=== PATIENT | female | born 1995 | race Caucasian/White ===

== ENCOUNTER 2021-04-29 22:19 | Emergency (ER) | payer SELFPAY ==
[2021-04-29 22:21] VITALS: BP 144/89; PULSE 113; RESP 16; TEMP 36.4; O2SAT 96; BMI 19.9
[2021-04-29 23:48] LABS: Amphetamine Urine VISTA NEGATIVE (<1000 ng/mL); Barbiturate Urine VISTA NEGATIVE (< 200 ng/mL); Benzodiazepine Urine VISTA NEGATIVE (< 200 ng/mL); Cocaine Urine VISTA NEGATIVE (< 300 ng/mL); Ecstacy Urine VISTA NEGATIVE (< 500 ng/mL); Methadone Urine VISTA NEGATIVE (< 300 ng/mL); PCP Urine VISTA NEGATIVE (< 25 ng/mL); THC Urine VISTA POSITIVE (< 50 ng/mL); Vista UDS pH Range 5
[2021-04-29 23:53] LABS: Absolute Lymphocyte Count 2.17 X10^3/uL (0.83-4.51); Absolute Neutrophil Count 7.3 X10^3/uL (2.0-7.7); Basophil% 0.9 % (0-1); Eosinophils% 2.8 % (0-5); Hematocrit 37.3 % (37-47); Hemoglobin 12.5 g/dL (12.0-15.0); Lymphocyte # 2.17 X10^3/ul (0.83-4.51); Mean Corp Hgb Conc 33.5 g/dL (32-36); Mean Corpuscular Hgb 29.8 pg (27.0-32.0); Mean Platelet Vol. 9.5 fl (6.2-12.0); Monocyte% 9.2 % (0-10); NRBC Flagged by Analyzer 0 % (0-5); Neutrophil # 7.26 X10^3/uL (2.7-7.7); Neutrophil % 66.7 % (47-70); Platelet Count 295 K/mm3 (150-450); RBC Distribution Width CV 13.2 % (11.6-14.6); RBC Distribution Width SD 43.3 fl (35.1-43.9); Red Blood Count 4.19 M/mm3 (4.2-5.4); White Blood Count 10.9 K/mm3 (4.4-11.0)
[2021-04-30 00:14] LABS: Internal QC Validated? YES +Cl - CLEAR BKGD; Pregnancy, Serum, hCG Quali. NEGATIVE Negative
[2021-04-30 00:18] LABS: Alcohol, Blood (Medical)-Serum < 3.0 mg/dL
[2021-04-30 00:20] LABS: Anion Gap 5 (5-15); BUN 8 mg/dL (7-18); BUN/Creat Ratio 10.9 RATIO (10-20); Calcium,Total 8.8 mg/dL (8.5-10.1); Chloride 107 mmol/L (98-107); Creatinine, Serum 0.74 mg/dL (0.55-1.02); EST Glomerular Filtration Rate 102 mL/min (>60); Est Glom Filt Rate - Afr Amer 123 mL/min (>60); Glucose 86 mg/dL (74-106); Potassium 3.9 mmol/L (3.5-5.1); Sodium Level 139 mmol/L (136-145)
--- NOTE | 2021-04-30 00:34 | EDS_ITS ---
HPI HPI - Psych History of Present Illness Chief Complaint: Mental Health Narrative Narrative: 25-year-old female with history of depression presenting with cutting behavior. Apparently the patient was locked in her own bathroom and cutting her shins and her friend wanted to get in but she could not. There was no way to look through a window. She knew that she had a knife and she was concerned she might do something more than just cutting behavior because the patient's father hung himself when she was younger. Patient has no history of suicidal attempts or ideation. She is not homicidal. She states that she does have cutting behavior distantly in the past. She states she is currently stressed out about her child. She states that she was and in [place] for greater than 3 years and her child jason now has custody rights because of that. Apparently in that state if you are for 3 years and the insurance is in his name he does have custody rights. He encouraged her to move here apparently and when she did he filed against her in court and now has sole custody. She states that he makes it hard for her to talk to her daughter. She states that he hangs up the phone on her while she is trying to talk. Oftentimes he does not answer the phone. Patient states that this is making her very depressed and angry. PFSH PFSH Allergy/AdvReac Type Severity Reaction Status Date / Time No Known Allergies Allergy Verified 04/29/21 22:21 Social History Smoking Status: Current some day smoker tobacco type: e-cigarettes ROS ROS ED Constitutional Constitutional ED: Denies chills, fever(s) or sweats Eyes Eyes: Denies blurry vision or diplopia ENT ENT ED: Denies rhinorrhea or sore throat Cardiovascular Cardiovascular: Denies chest pain or palpitations Respiratory/Chest Respiratory/Chest: Denies cough, dyspnea or sputum Gastrointestinal Gastrointestinal: Denies abdominal pain or nausea Genitourinary Genitourinary ED: Denies dysuria, hematuria or urinary frequency Musculoskeletal Musculoskeletal: Denies arthralgias or myalgias Integumentary Denies abscess or rash Neurologic Neurologic: Denies headache(s) or weakness Psychiatric Psychiatric: Reports depression; Denies suicidal thoughts EXAM Physical Exam Const Vital Signs: 04/29/21 22:21 Temperature 97.6 F L Temperature Source Temporal Pulse Rate 113 H Respiratory Rate 16 Blood Pressure 144/89 H Blood Pressure Mean 107 Pulse Ox 96 Oxygen Delivery Method Room Air Positive well nourished HEENT Reports moist mucous membranes normocephalic and atraumatic Eyes PERRL and EOMs intact bilaterally Resp normal respiratory effort and clear to auscultation bilaterally Cardio Rate: regular rate Rhythm: regular rhythm Neuro oriented x3 Sensorium / Orientation: alert and oriented to person Psych mental status grossly normal, denies homicidal ideation and denies suicidal ideation Skin Skin Narrative: Superficial horizontal linear abrasions on the bilateral tibia. These are not gaping. Bleeding is well controlled. MDM MDM MDM Narrative Medical decision making narrative: Patient presenting with cutting behavior which she states is because she is depressed. She denies suicidal homicidal ideation. I did obtain blood work and this is all normal. Urine drug screen is positive for cannabinoids. EtOH is negative. hCG is negative. Given her cutting behavior and her depression I'll have her talk to crisis. I believe that she can likely contract for safety as she has somebody to go home with that can monitor her and she does not express that she is suicidal. Patient is medically clear for evaluation at this time. Patient was discussed with crisis and both I and the crisis counselor do believe the patient is a good candidate for safety contract. We will have this signed and she will be given information for follow-up for counseling. She is counseled if she has any new or worsening symptoms to return as needed. Impression: 1. Depression 2. Cutting behavior Lab Data Attestation: I reviewed the patient's lab results. Labs: Laboratory Results - last 24 hr 04/29/21 04/29/21 04/29/21 23:20 23:33 23:33 WBC 10.9 RBC 4.19 L Hgb 12.5 Hct 37.3 MCV 89.0 MCH 29.8 MCHC 33.5 RDW Std Deviation 43.3 RDW Coeff of Hansel 13.2 Plt Count 295 MPV 9.5 Immature Gran % (Auto) 0.400 Neut % (Auto) 66.7 Lymph % (Auto) 20.0 [place] % (Auto) 9.2 Eos % (Auto) 2.8 Baso % (Auto) 0.9 Absolute Neuts (auto) 7.3 Absolute Lymphs (auto) 2.17 Nucleated RBC % 0 Sodium 139 Potassium 3.9 Chloride 107 Carbon Dioxide 27.0 Anion Gap 5 BUN 8 Creatinine 0.74 Estim Creat Clear Calc 99.80 Est GFR (MDRD) Af Amer 123 Est GFR (MDRD) Non-Af 102 BUN/Creatinine Ratio 10.9 Glucose 86 Calcium 8.8 Serum , Qual Urine Opiates Screen NEGATIVE Urine Methadone Screen NEGATIVE Ur Barbiturates Screen NEGATIVE Ur Phencyclidine Scrn NEGATIVE Ur Amphetamines Screen NEGATIVE U Methamphetamin-MDMA NEGATIVE U Benzodiazepines Scrn NEGATIVE Urine Cocaine Screen NEGATIVE U Cannabinoids Screen POSITIVE H Ur Drug Screen Comment Ethyl Alcohol 04/29/21 04/29/21 23:33 23:33 WBC RBC Hgb Hct MCV MCH MCHC RDW Std Deviation RDW Coeff of Hans[place] Plt Count MPV Immature Gran % (Auto) Neut % (Auto) Lymph % (Auto) [place] % (Auto) Eos % (Auto) Baso % (Auto) Absolute Neuts (auto) Absolute Lymphs (auto) Nucleated RBC % Sodium Potassium Chloride Carbon Dioxide Anion Gap BUN Creatinine Estim Creat Clear Calc Est GFR (MDRD) Af Amer Est GFR (MDRD) Non-Af BUN/Creatinine Ratio Glucose Calcium Serum , Qual NEGATIVE Urine Opiates Screen Urine Methadone Screen Ur Barbiturates Screen Ur Phencyclidine Scrn Ur Amphetamines Screen U Methamphetamin-MDMA U Benzodiazepines Scrn Urine Cocaine Screen U Cannabinoids Screen Ur Drug Screen Comment Ethyl Alcohol < 3.0 Discharge Plan Triage Chief Complaint: Mental Health ED Provider: Hugo Peña Dx/Rx/DC Orders Primary Care Provider: Care Physician,No Primary
--- NOTE | 2021-04-30 00:58 | NURSING ---
CALLED CRISIS AT [phone]
--- NOTE | 2021-04-30 01:44 | ED.RN ---
crisis called and is speaking with patient at this time
[2021-04-30 02:33] VITALS: BP 116/60; PULSE 74; RESP 16; O2SAT 98
[2021-04-30 02:34] VITALS: BP 116/60; PULSE 74; RESP 16; O2SAT 98
== END 2021-04-30 02:40 | disposition home or self-care (01) ==
PROVIDERS: Emergency Provider Student in an Organized Health Care Education/Training Program; Visit Provider Student in an Organized Health Care Education/Training Program
DX: S80.811A Abrasion, right lower leg, initial encounter (principal); X78.9XXA Intentional self-harm by unspecified sharp object, initial encounter; S80.812A Abrasion, left lower leg, initial encounter; Y93.9 Activity, unspecified; Y92.9 Unspecified place or not applicable; F17.290 Nicotine dependence, other tobacco product, uncomplicated; F32.A Depression, unspecified
CPT/HCPCS: 36415; 80048; 80307; 82077; 84703; 85025; 87426; 99281